=== PATIENT | female | born 1990 | race Caucasian/White ===

== ENCOUNTER 2017-07-06 20:04 | Emergency (ER) | payer OTHER ==
[2017-07-06 22:59] LABS: ADD MAN DIFF? NO
[2017-07-06 23:05] LABS: WHITE BLOOD COUNT 10.2 10^3/ul (4.8-10.8)
[2017-07-06 23:05] LABS: BASOPHIL # 0.1 10^3/ul (0.0-0.1); BASOPHILS % 0.7 % (0.0-2.0); EOSINOPHILS # 0.2 10^3/ul (0.0-0.5); EOSINOPHILS % 1.6 % (0.0-7.0); HEMATOCRIT 36.8 % (37.0-47.0); HEMOGLOBIN 12.6 g/dl (12.0-16.0); LYMPHOCYTES # 3.2 10^3/ul (0.8-2.9); LYMPHOCYTES % 31.3 % (15.0-51.0); MEAN CORPUSCULAR HEMOGLOBIN 29.3 pg (29.0-33.0); MEAN CORPUSCULAR HGB CONC 34.2 g/dl (32.0-37.0); MEAN CORPUSCULAR VOLUME 85.6 fl (82.0-101.0); MEAN PLATELET VOLUME 10.7 fl (7.4-10.4); MONOCYTE # 0.5 10^3/ul (0.3-0.9); MONOCYTES % 4.5 % (0.0-11.0); NEUTROPHIL # 6.3 10^3/ul (1.6-7.5); NEUTROPHILS % 61.8 % (39.0-77.0); PLATELET COUNT 310 10^3/UL (140-415); RED CELL DISTRIBUTION WIDTH 12.5 % (11.5-14.5)
[2017-07-06 23:16] LABS: ADD UMIC YES; UR ASCORBIC ACID NEGATIVE (NEGATIVE); UR BILIRUBIN (Dip) NEGATIVE (NEGATIVE); UR BLOOD (Dip) 1+ mg/dL (NEGATIVE); UR CLARITY CLEAR (CLEAR); UR COLOR YELLOW (YELLOW); UR GLUCOSE (Dip) NEGATIVE (NEGATIVE); UR KETONES (Dip) NEGATIVE (NEGATIVE); UR LEUKOCYTE ESTERASE (Dip) NEGATIVE Leu/ul (NEGATIVE); UR NITRITE (Dip) NEGATIVE (NEGATIVE); UR RBC 0 /HPF (0-5); UR SPECIFIC GRAVITY (Dip) 1.011 (1.003-1.030); UR SQUAMOUS EPITHELIAL CELL FEW /HPF (FEW); UR TOTAL PROTEIN (Dip) NEGATIVE (NEGATIVE); UR UROBILINOGEN (Dip) NEGATIVE (NEGATIVE); UR WBC 1 /HPF (0-5)
== END 2017-07-07 00:31 | disposition home or self-care (01) ==
LOC: FTE 07-07 00:31
DX: O20.9 Hemorrhage in early pregnancy, unspecified (principal); O26.891 Other specified pregnancy related conditions, first trimester; R10.9 Unspecified abdominal pain; Z3A.08 8 weeks gestation of pregnancy
CPT/HCPCS: 36415; 76801; 81001; 84702; 85025; 86900; 86901; 99284-25

== ENCOUNTER 2017-07-29 16:06 | Emergency (ER) | payer OTHER ==
[2017-07-29] MEDS: ACETAMINOPHEN 325 MG TAB PO (21:06)
[2017-07-29 21:08] LABS: ADD MAN DIFF? NO
[2017-07-29 21:15] LABS: ADD UMIC YES; UR ASCORBIC ACID NEGATIVE (NEGATIVE); UR BILIRUBIN (Dip) NEGATIVE (NEGATIVE); UR BLOOD (Dip) 3+ mg/dL (NEGATIVE); UR CLARITY SLIGHTLY CLOUDY (CLEAR); UR COLOR YELLOW (YELLOW); UR GLUCOSE (Dip) NEGATIVE (NEGATIVE); UR KETONES (Dip) NEGATIVE (NEGATIVE); UR LEUKOCYTE ESTERASE (Dip) NEGATIVE Leu/ul (NEGATIVE); UR NITRITE (Dip) NEGATIVE (NEGATIVE); UR RBC 1 /HPF (0-5); UR SPECIFIC GRAVITY (Dip) 1.003 (1.003-1.030); UR TOTAL PROTEIN (Dip) 1+ mg/dl (NEGATIVE); UR UROBILINOGEN (Dip) NEGATIVE (NEGATIVE); UR WBC 5 /HPF (0-5)
[2017-07-29 21:18] LABS: WHITE BLOOD COUNT 9.5 10^3/ul (4.8-10.8)
[2017-07-29 21:18] LABS: BASOPHILS % 0.4 % (0.0-2.0); EOSINOPHILS # 0.2 10^3/ul (0.0-0.5); EOSINOPHILS % 1.6 % (0.0-7.0); HEMATOCRIT 35.5 % (37.0-47.0); HEMOGLOBIN 12.1 g/dl (12.0-16.0); LYMPHOCYTES # 2.8 10^3/ul (0.8-2.9); LYMPHOCYTES % 29.8 % (15.0-51.0); MEAN CORPUSCULAR HEMOGLOBIN 29.3 pg (29.0-33.0); MEAN CORPUSCULAR HGB CONC 34.1 g/dl (32.0-37.0); MEAN PLATELET VOLUME 10.5 fl (7.4-10.4); MONOCYTE # 0.5 10^3/ul (0.3-0.9); MONOCYTES % 4.8 % (0.0-11.0); NEUTROPHILS % 63.2 % (39.0-77.0); PLATELET COUNT 279 10^3/UL (140-415); RED BLOOD COUNT 4.13 10^6/ul (4.20-5.40); RED CELL DISTRIBUTION WIDTH 12.7 % (11.5-14.5)
== END 2017-07-29 23:02 | disposition home or self-care (01) ==
LOC: FTE 16:06
DX: O20.9 Hemorrhage in early pregnancy, unspecified (principal); R10.2 Pelvic and perineal pain; Z3A.13 13 weeks gestation of pregnancy
CPT/HCPCS: 36415; 76801; 81001; 84702; 85025; 86900; 86901; 99284-25

== ENCOUNTER 2017-08-14 10:30 | Emergency (ER) | payer OTHER ==
[2017-08-14] MEDS: ACETAMINOPHEN 500 MG TAB PO (12:05)
[2017-08-14 12:24] LABS: ADD UMIC YES; UR ASCORBIC ACID 40 mg/dL (NEGATIVE); UR BACTERIA FEW /HPF (NONE SEEN); UR BILIRUBIN (Dip) NEGATIVE (NEGATIVE); UR BLOOD (Dip) 3+ mg/dL (NEGATIVE); UR CLARITY CLOUDY (CLEAR); UR COLOR YELLOW (YELLOW); UR GLUCOSE (Dip) NEGATIVE (NEGATIVE); UR KETONES (Dip) NEGATIVE (NEGATIVE); UR LEUKOCYTE ESTERASE (Dip) TRACE Leu/ul (NEGATIVE); UR MUCUS FEW /HPF (NONE SEEN); UR NITRITE (Dip) NEGATIVE (NEGATIVE); UR RBC 9 /HPF (0-5); UR SPECIFIC GRAVITY (Dip) 1.018 (1.003-1.030); UR SQUAMOUS EPITHELIAL CELL FEW /HPF (FEW); UR TOTAL PROTEIN (Dip) NEGATIVE (NEGATIVE); UR UROBILINOGEN (Dip) NEGATIVE (NEGATIVE); UR WBC 9 /HPF (0-5)
[2017-08-14] MEDS: CEPHALEXIN 500 MG CAP PO (13:32)
== END 2017-08-14 13:41 | disposition home or self-care (01) ==
LOC: FTE 10:30
DX: O20.9 Hemorrhage in early pregnancy, unspecified (principal); Z3A.15 15 weeks gestation of pregnancy
CPT/HCPCS: 76805; 81001; 99284-25

== ENCOUNTER 2017-09-09 10:38 | Emergency (ER) | payer OTHER | END 2017-09-09 12:09 | disposition home or self-care (01) | LOC: E/R 10:38 | DX: H60.91 Unspecified otitis externa, right ear (principal) | CPT/HCPCS: 99284; Z7502 ==

== ENCOUNTER 2017-12-28 14:00 | Inpatient (IN) | payer OTHER ==
[2017-12-28 15:12] LABS: ADD MAN DIFF? NO
[2017-12-28 15:15] LABS: WHITE BLOOD COUNT 6.7 10^3/ul (4.8-10.8)
[2017-12-28 15:15] LABS: BASOPHILS % 0.4 % (0.0-2.0); EOSINOPHILS # 0.1 10^3/ul (0.0-0.5); EOSINOPHILS % 1.2 % (0.0-7.0); HEMATOCRIT 33.8 % (37.0-47.0); HEMOGLOBIN 11.1 g/dl (12.0-16.0); LYMPHOCYTES # 1.7 10^3/ul (0.8-2.9); LYMPHOCYTES % 24.8 % (15.0-51.0); MEAN CORPUSCULAR HEMOGLOBIN 27.4 pg (29.0-33.0); MEAN CORPUSCULAR HGB CONC 32.8 g/dl (32.0-37.0); MEAN CORPUSCULAR VOLUME 83.5 fl (82.0-101.0); MEAN PLATELET VOLUME 12.2 fl (7.4-10.4); MONOCYTE # 0.4 10^3/ul (0.3-0.9); MONOCYTES % 5.5 % (0.0-11.0); NEUTROPHIL # 4.6 10^3/ul (1.6-7.5); NEUTROPHILS % 67.5 % (39.0-77.0); PLATELET COUNT 199 10^3/UL (140-415); RED BLOOD COUNT 4.05 10^6/ul (4.20-5.40)
[2017-12-28 15:29] LABS: ADD UMIC YES; UR ASCORBIC ACID NEGATIVE (NEGATIVE); UR BACTERIA FEW /HPF (NONE SEEN); UR BILIRUBIN (Dip) NEGATIVE (NEGATIVE); UR BLOOD (Dip) NEGATIVE (NEGATIVE); UR CLARITY CLOUDY (CLEAR); UR COLOR YELLOW (YELLOW); UR GLUCOSE (Dip) NEGATIVE (NEGATIVE); UR KETONES (Dip) NEGATIVE (NEGATIVE); UR LEUKOCYTE ESTERASE (Dip) NEGATIVE Leu/ul (NEGATIVE); UR NITRITE (Dip) NEGATIVE (NEGATIVE); UR RBC 1 /HPF (0-5); UR SPECIFIC GRAVITY (Dip) 1.021 (1.003-1.030); UR SQUAMOUS EPITHELIAL CELL MODERATE /HPF (FEW); UR TOTAL PROTEIN (Dip) 2+ mg/dl (NEGATIVE); UR UROBILINOGEN (Dip) 1+ mg/dL (NEGATIVE); UR WBC 6 /HPF (0-5)
[2017-12-28 15:34] LABS: ALANINE AMINOTRANSFERASE 31 IU/L (13-69); ALBUMIN 3.1 g/dl (3.3-4.9); ALKALINE PHOSPHATASE 280 IU/L (42-121); ANION GAP 13 (8-16); ASPARTATE AMINO TRANSFERASE 27 IU/L (15-46); BILIRUBIN,INDIRECT 0.2 mg/dl (0-1.1); BILIRUBIN,TOTAL 0.2 mg/dl (0.2-1.3); BLOOD UREA NITROGEN 11 mg/dl (7-20); CALCIUM 8.4 mg/dl (8.4-10.2); CARBON DIOXIDE 19 mmol/L (21-31); CHLORIDE 108 mmol/L (97-110); CREATININE 0.64 mg/dl (0.44-1.00); GLUCOSE 123 mg/dl (70-220); POTASSIUM 4.5 mmol/L (3.5-5.1); SODIUM 135 mmol/L (135-144); TOTAL PROTEIN 6.2 g/dl (6.1-8.1); URIC ACID 6.1 mg/dl (3.1-7.9)
[2017-12-28 15:35] LABS: INR 0.91; PARTIAL THROMBOPLASTIN TIME 31.9 Sec (25.0-35.0); PROTIME 12.3 Sec (11.9-14.9)
[2017-12-28] MEDS ORDERED: OXYTOCIN 30 UNITS/LR 500 ML IV (19:00)
[2017-12-28] MEDS ORDERED: METHYLERGONOVINE 0.2 MG INJ IM (19:00)
[2017-12-28] MEDS ORDERED: CARBOPROST 250 MCG INJ IM (19:00)
[2017-12-28] MEDS ORDERED: MISOPROSTOL 200 MCG TAB PR (19:00)
[2017-12-28] MEDS: LACTATED RINGER'S 1,000 ML IV (19:16)
[2017-12-28] MEDS: LABETALOL HCL 20MG INJ IV (19:21)
[2017-12-28 19:27] LABS: ADD MAN DIFF? NO
[2017-12-28 19:29] LABS: WHITE BLOOD COUNT 7.3 10^3/ul (4.8-10.8)
[2017-12-28 19:29] LABS: BASOPHILS % 0.5 % (0.0-2.0); EOSINOPHILS # 0.1 10^3/ul (0.0-0.5); EOSINOPHILS % 1.4 % (0.0-7.0); HEMATOCRIT 35.6 % (37.0-47.0); HEMOGLOBIN 11.7 g/dl (12.0-16.0); LYMPHOCYTES % 27.6 % (15.0-51.0); MEAN CORPUSCULAR HEMOGLOBIN 27.6 pg (29.0-33.0); MEAN CORPUSCULAR HGB CONC 32.9 g/dl (32.0-37.0); MEAN PLATELET VOLUME 12.3 fl (7.4-10.4); MONOCYTE # 0.4 10^3/ul (0.3-0.9); NEUTROPHIL # 4.7 10^3/ul (1.6-7.5); NEUTROPHILS % 64.1 % (39.0-77.0); PLATELET COUNT 210 10^3/UL (140-415); RED BLOOD COUNT 4.24 10^6/ul (4.20-5.40); RED CELL DISTRIBUTION WIDTH 14.1 % (11.5-14.5)
[2017-12-28] MEDS: MAGNESIUM SULFATE 4 GM/100 ML 100 ML IVPB (19:31)
[2017-12-28] MEDS: BETAMET NA PHOS/AC(6 MG/ML) 5ML INJ IM (19:45)
[2017-12-28 19:48] LABS: INR 0.86; PROTIME 11.8 Sec (11.9-14.9); PT RATIO 0.9
[2017-12-28 19:49] LABS: PARTIAL THROMBOPLASTIN TIME 31.4 Sec (25.0-35.0)
[2017-12-28] MEDS ORDERED: METOCLOPRAMIDE 10 MG INJ (20:02)
[2017-12-28] MEDS ORDERED: FAMOTIDINE 20 MG INJ (20:02)
[2017-12-28] MEDS ORDERED: ONDANSETRON 4 MG INJ (20:03)
[2017-12-28] MEDS: ONDANSETRON 4 MG INJ IV (20:11)
[2017-12-28] MEDS: METOCLOPRAMIDE 10 MG INJ IM (20:11)
[2017-12-28] MEDS: FAMOTIDINE 20 MG INJ IV (20:11)
[2017-12-28] MEDS: MAGNESIUM SULFATE 20 GM/500 ML 500 ML IV (20:15)
[2017-12-28] MEDS ORDERED: morphine SULFATE/PF (10 MG/10 ML) INJ (21:02)
[2017-12-28] MEDS ORDERED: OXYTOCIN 10 UNIT INJ (21:02)
[2017-12-28] MEDS ORDERED: BUPIVACAINE 0.75%/DEXT (SPINAL) 2 ML INJ (21:10)
[2017-12-28] MEDS ORDERED: IPRATROPIUM (NEB) 0.5 MG/2.5 ML AMP HHN (23:00)
[2017-12-28] MEDS ORDERED: LABETALOL HCL 20MG INJ IV (23:00)
[2017-12-28] MEDS ORDERED: KETOROLAC 30 MG INJ IV (23:00)
[2017-12-28] MEDS ORDERED: ZOLPIDEM 5 MG TAB PO (23:00)
[2017-12-28] MEDS ORDERED: ONDANSETRON 4 MG INJ IV (23:00)
[2017-12-28] MEDS ORDERED: DIPHENHYDRAMINE 50 MG INJ IV ×2 (23:00)
[2017-12-28] MEDS ORDERED: FENTAnyl 50 MCG/ML VIAL IV ×2 (23:00)
[2017-12-28] MEDS ORDERED: HYDROmorphONE 1 MG/5 ML IV SYRINGE IV ×3 (23:00)
[2017-12-28] MEDS ORDERED: hydrALAzine 20 MG INJ IV (23:00)
[2017-12-28] MEDS ORDERED: NALOXONE (0.4 MG/ML) INJ IV (23:00)
[2017-12-28] MEDS ORDERED: HYDROmorphONE 0.5 MG/0.5 ML SYG IV ×2 (23:00)
[2017-12-28] MEDS: CEFAZOLIN 2 GM/50 ML (PMX) 50 ML IV (23:30)
[2017-12-29] MEDS ORDERED: ONDANSETRON 4 MG INJ (00:24)
[2017-12-29] MEDS: MAGNESIUM SULFATE 20 GM/500 ML 500 ML IV ×4 (01:24→18:19)
[2017-12-29] MEDS: OXYTOCIN 30 UNITS/LR 500 ML IV (02:00)
[2017-12-29] MEDS ORDERED: MISOPROSTOL 200 MCG TAB PR (02:30)
[2017-12-29] MEDS ORDERED: CARBOPROST 250 MCG INJ IM (02:30)
[2017-12-29] MEDS ORDERED: ONDANSETRON 4 MG INJ IV (02:30)
[2017-12-29] MEDS: CEFAZOLIN 1 GM/50 ML (PMX) 50 ML IV (02:30)
[2017-12-29] MEDS ORDERED: MAGNESIUM HYDROXIDE 30ML CUP PO (02:30)
[2017-12-29] MEDS ORDERED: BISACODYL 10 MG SUPP PR (02:30)
[2017-12-29] MEDS ORDERED: OXYTOCIN 30 UNITS/LR 500 ML IV (02:30)
[2017-12-29] MEDS ORDERED: METHYLERGONOVINE 0.2 MG INJ IM (02:30)
[2017-12-29 03:22] LABS: MAGNESIUM 4.5 mg/dl (1.7-2.5)
[2017-12-29] MEDS: ONDANSETRON 4 MG INJ IV (06:00)
[2017-12-29] MEDS: CEFAZOLIN 1 GM/50 ML (PMX) 50 ML IVPB ×3 (07:59→23:37)
[2017-12-29] MEDS: ACCU-CHEK XX ×3 (10:05→20:05)
[2017-12-29 10:34] LABS: MAGNESIUM 5.9 mg/dl (1.7-2.5)
[2017-12-29] MEDS: LACTATED RINGER'S 1,000 ML IV ×2 (11:03→18:01)
[2017-12-29 13:24] LABS: HEPATITIS B SURFACE ANTIGEN NEGATIVE (NEGATIVE)
[2017-12-29 15:03] LABS: RAPID PLASMA REAGIN NONREACTIVE (NR)
[2017-12-29 16:22] LABS: MAGNESIUM 6.1 mg/dl (1.7-2.5)
[2017-12-29 21:32] LABS: MAGNESIUM 5.7 mg/dl (1.7-2.5)
[2017-12-29] MEDS: KETOROLAC 30 MG INJ IV (22:59)
[2017-12-30] MEDS: LACTATED RINGER'S 1,000 ML IV ×4 (01:06→18:01)
[2017-12-30] MEDS: OXYCODONE/ACETAMINOPHEN (5/325) TAB PO ×6 (04:10→23:05)
[2017-12-30] MEDS: ACCU-CHEK XX ×4 (08:13→22:39)
[2017-12-30 09:19] LABS: ADD MAN DIFF? NO
[2017-12-30 09:22] LABS: BASOPHILS % 0.2 % (0.0-2.0); EOSINOPHILS % 0.2 % (0.0-7.0); HEMATOCRIT 30.2 % (37.0-47.0); HEMOGLOBIN 9.9 g/dl (12.0-16.0); LYMPHOCYTES # 1.2 10^3/ul (0.8-2.9); LYMPHOCYTES % 12.4 % (15.0-51.0); MEAN CORPUSCULAR HEMOGLOBIN 27.6 pg (29.0-33.0); MEAN CORPUSCULAR HGB CONC 32.8 g/dl (32.0-37.0); MEAN CORPUSCULAR VOLUME 84.1 fl (82.0-101.0); MEAN PLATELET VOLUME 11.9 fl (7.4-10.4); MONOCYTE # 0.4 10^3/ul (0.3-0.9); MONOCYTES % 4.3 % (0.0-11.0); NEUTROPHIL # 7.9 10^3/ul (1.6-7.5); NEUTROPHILS % 82.6 % (39.0-77.0); PLATELET COUNT 199 10^3/UL (140-415); RED BLOOD COUNT 3.59 10^6/ul (4.20-5.40); RED CELL DISTRIBUTION WIDTH 14.4 % (11.5-14.5)
[2017-12-30 09:22] LABS: WHITE BLOOD COUNT 9.6 10^3/ul (4.8-10.8)
[2017-12-30 09:42] LABS: ALANINE AMINOTRANSFERASE 32 IU/L (13-69); ALBUMIN 2.9 g/dl (3.3-4.9); ALKALINE PHOSPHATASE 201 IU/L (42-121); ANION GAP 9 (8-16); ASPARTATE AMINO TRANSFERASE 45 IU/L (15-46); BILIRUBIN,INDIRECT 0.1 mg/dl (0-1.1); BILIRUBIN,TOTAL 0.1 mg/dl (0.2-1.3); BLOOD UREA NITROGEN 11 mg/dl (7-20); CALCIUM 7.3 mg/dl (8.4-10.2); CARBON DIOXIDE 27 mmol/L (21-31); CHLORIDE 100 mmol/L (97-110); CREATININE 0.74 mg/dl (0.44-1.00); GLUCOSE 87 mg/dl (70-220); POTASSIUM 4.4 mmol/L (3.5-5.1); SODIUM 132 mmol/L (135-144); TOTAL PROTEIN 5.8 g/dl (6.1-8.1)
[2017-12-30] MEDS: ACETAMINOPHEN 325 MG TAB PO (10:20)
[2017-12-30] MEDS: SENNA/DOCUSATE NA (8.6MG/50MG) TAB PO (21:15)
[2017-12-30] MEDS: IBUPROFEN 600 MG TAB PO (23:52)
[2017-12-31] MEDS: LACTATED RINGER'S 1,000 ML IV ×2 (02:01→19:35)
[2017-12-31] MEDS: OXYCODONE/ACETAMINOPHEN (5/325) TAB PO ×2 (05:05→16:47)
[2017-12-31] MEDS: ACCU-CHEK XX ×4 (07:30→20:05)
[2017-12-31] MEDS: IBUPROFEN 600 MG TAB PO ×2 (11:33→18:14)
[2017-12-31] MEDS: LANOLIN 7 GM TUBE TOP (16:47)
[2017-12-31] MEDS: SENNA/DOCUSATE NA (8.6MG/50MG) TAB PO (21:52)
[2017-12-31] MEDS: LABETALOL 100 MG TAB PO (22:13)
[2018-01-01] MEDS: IBUPROFEN 600 MG TAB PO ×4 (00:08→23:26)
[2018-01-01] MEDS: LACTATED RINGER'S 1,000 ML IV ×3 (01:57→18:01)
[2018-01-01] MEDS: OXYCODONE/ACETAMINOPHEN (5/325) TAB PO ×3 (03:30→19:54)
[2018-01-01] MEDS: ACCU-CHEK XX (07:30)
[2018-01-01] MEDS: LABETALOL 100 MG TAB PO ×2 (09:06→21:16)
[2018-01-02] MEDS: IBUPROFEN 600 MG TAB PO ×2 (06:10→10:47)
[2018-01-02] MEDS: LABETALOL 100 MG TAB PO (10:44)
== END 2018-01-02 15:08 | disposition home or self-care (01) | DRG 765 ==
LOC: OBT 14:00 → L-D 12-29 01:40 → PP1 12-29 03:23 → L-D 14:03 → OBT 18:00 → L-D 18:00
PROC: 10D00Z1 Extraction of Products of Conception, Low, Open Approach (ICD-10-PCS; principal; 2017-12-29)
DX: O14.14 Severe pre-eclampsia complicating childbirth (principal); Z68.41 Body mass index [BMI] 40.0-44.9, adult; O24.424 Gestational diabetes mellitus in childbirth, insulin controlled; O99.284 Endocrine, nutritional and metabolic diseases complicating childbirth; E03.9 Hypothyroidism, unspecified; O99.214 Obesity complicating childbirth; E66.9 Obesity, unspecified; Z37.0 Single live birth; Z3A.35 35 weeks gestation of pregnancy; Z79.4 Long term (current) use of insulin
CPT/HCPCS: 76815; 76818; 80053; 81001; 82962; 83735; 84560; 85025; 85384; 85610; 85730; 86592; 86850; 86900; 86901; 87340; 88307; 99464

== ENCOUNTER 2019-01-21 11:53 | Emergency (ER) | payer OTHER | END 2019-01-21 12:36 | disposition home or self-care (01) | LOC: E/R 12:36 | DX: R05 Cough (principal); Z20.818 Contact with and (suspected) exposure to other bacterial communicable diseases | CPT/HCPCS: 99283; Z7502 ==